=== PATIENT | male | born 1995 | race Caucasian/White ===

== ENCOUNTER → 2020-11-24 09:54 | Outpatient (CLI) | payer BC, SELFPAY ==
--- NOTE | ~2020-11-24 | XR_ITS ---
EXAMINATION: XR wrist RT min 3V DATE: 11/24/2020 10:08 INDICATION: Right wrist pain post fall TECHNIQUE: Posteroanterior, ulnar deviation, oblique, and lateral views of the right wrist were obtai shani. COMPARISON: 12/19/2016 FINDINGS: Suggestion of an old healed fracture at the distal right radial metadiaphysis with mild dorsal angula tion. Alignment is otherwise normal. No other fractures identified. Joint spaces are normal. Rounded corticated ossicle at the tip of the ulnar styloid process which could represent either a degenerativ e loose body or heterotopic ossicle related to chronic soft tissue injury. Soft tissues are otherwise unremarkable. IMPRESSION: 1. No acute osseous abnormality. Reviewed, dictated and finalized at location B.
== END ==
PROVIDERS: PCP Family Medicine; Visit Provider Physician Assistant
DX: M25.531 Pain in right wrist (principal)
CPT/HCPCS: 73110

== ENCOUNTER → 2021-03-16 18:05 | Outpatient (CLI) | payer BC, SELFPAY ==
--- NOTE | ~2021-03-16 | XR_ITS ---
XR hand LT 2V, XR wrist LT 2V 03/16/2021 18:21 (accession [id number]), 03/16/2021 18:22 (accession [id number]) Indication: Left wrist and hand pain Procedure: 2 views of the left hand and 2 views left wrist Comparison: No prior studies for comparison. Findings: There is a nondisplaced scaphoid waist fracture. There is anatomic alignment. No other frac tures. No soft tissue abnormality. No foreign bodies. Impression: 1: Nondisplaced scaphoid waist fracture. Reviewed, dictated and finalized at location A. Impression: 1: Nondisplaced scaphoid waist fracture. Impression: 1: Nondisplaced scaphoid waist fracture.
== END ==
PROVIDERS: PCP Family Medicine; Visit Provider Family Medicine
DX: S62.102A Fracture of unspecified carpal bone, left wrist, initial encounter for closed fracture (principal)
CPT/HCPCS: 73100; 73120

== ENCOUNTER 2022-05-18 09:42 | Emergency (ER) | payer OTHER, SELFPAY ==
[2022-05-18 09:57] VITALS: BP 119/97; PULSE 75; RESP 16; TEMP 37; O2SAT 100
--- NOTE | 2022-05-18 10:01 | ED.ABDPAIN ---
HPI - Abdominal Pain General Chief Complaint: Abdominal Pain Stated Complaint: BLOATED/NAUSEA/VOMITING/ABD PAIN Time Seen by Provider: 05/18/22 10:17 Source: patient and RN notes reviewed Mode of arrival: ambulatory Limitations: no limitations History of Present Illness HPI narrative: 26-year-old male presents with concern for abdominal bloating and 1 episode of vomiting. He reports some abdominal cramping overnight. Reports he had a bowel movement today that was normal but small. He denies any recent constipation. He denies diarrhea. He reports he felt bloated after he ate some chicken last night and then several hours later had an episode of vomiting. He denies taking any medications for his symptoms. He reports he has had stomach issues his whole life. 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 He denies worsening pain with moving, denies dysuria, frequency, urgency, testicular pain, swelling, redness. Denies fever, body aches, chills, sweats MD elicited complaint: other (bloating) Related Data Home Medications Medication Instructions Recorded Confirmed pantoprazole 40 mg tablet,delayed mg PO 05/18/22 release Allergies Allergy/AdvReac Type Severity Reaction Status Date / Time amoxicillin Allergy Unknown Rash Verified 05/18/22 09:51 POTASSIUM CLAVULANATE Allergy Mild Unknown Uncoded 05/18/22 09:51 Review of Systems Review of Systems: CONSTITUTIONAL: Denies malaise, chills, sweats, or fever. ENT: Denies rhinorrhea, congestion, sinus pain, otalgia or sore throat. CARDIOVASCULAR: Denies chest pain, palpitations, or edema. RESPIRATORY: Denies cough or dyspnea. GASTROINTESTINAL: Denies abdominal pain, diarrhea, bloody, or mucous stools. He reports abdominal bloating and cramping, 1 episode of vomiting GENITOURINARY: Denies dysuria or hematuria. MUSCULOSKELETAL: Denies myalgia. NEUROLOGIC: Denies headache. All systems reviewed & are unremarkable except as noted in HPI and below [facility] Family History Family History Mother Family history of thyroid disease Family history of elevated blood lipids Family history of malignant neoplasm of kidney Grandparent Diabetes mellitus Family history of elevated blood lipids Family history of lung cancer Other Family history of arthritis Family history of malignant neoplasm Hypertension Social History Social History Smoking status: Never smoker Alcohol intake: current Comments At time of signature, agree with nursing past medical, surgical, social and family history. There is no relevant family history pertinent to the presenting complaint Exam Narrative: GENERAL: Well-appearing, well-nourished, and in no acute distress. HEAD: Normocephalic, atraumatic. EYES: PERRLA, conjunctivae clear, and EOMI. ENT: Nares clear, turbinates pink, no rhinorrhea or epistaxis. Mucous membranes moist. Oropharynx without edema, erythema, or lesions. Tonsils not enlarged and without exudate. NECK: Supple. No lymphadenopathy CHEST: Speaks in full sentences. No respiratory distress. HEART: Regular rate and rhythm. ABDOMEN: Soft, flat, nondistended, nontender. No guarding, rebound tenderness, or rigidity. No pulsatile masses. Bowel sounds present in all four quadrants. No organomegaly. Negative Garcia?s sign. No periumbilical tenderness. No Supra public tenderness or distension. Good femoral pulses bilaterally. No hernia noted. No scars or surface trauma. SKIN: Warm, dry, no rash. NEURO: Alert and oriented x3. PSYCH: Normal mood and affect Course Course Emergency Course: Patient is aware of diagnosis, understands and agrees to treatment plan. Anticipatory guidance given. Patient agrees to follow-up as directed and is aware of reasons to seek care at the emergency department. Portions of this record may have been created with voice r
== END 2022-05-18 10:33 | disposition home or self-care (01) ==
PROVIDERS: Emergency Provider Nurse Practitioner; PCP Family Medicine
DX: R14.0 Abdominal distension (gaseous) (principal); R10.9 Unspecified abdominal pain
CPT/HCPCS: 99213; G0463